=== PATIENT | female | born 1995 | race Caucasian/White ===

== ENCOUNTER 2022-07-15 06:57 | Outpatient (CLI) | payer OTHER ==
[2022-07-15] MEDS ORDERED: GADOBUTROL 7.5 MMOL/7.5 ML VIAL ONE (07:04)
[2022-07-15] MEDS ORDERED: GADOBUTROL 7.5 MMOL/7.5 ML VIAL IVP ONE (08:30)
--- NOTE | 2022-07-15 09:35 | MRI Report ---
PROCEDURE: PELVIS W/WO INDICATIONS: DYSMENORRHEA CONTRAST: GADAVIST 5.7 ML TECHNIQUE: Coronal ultra fast SE, sagittal breath-hold T2 FSE; axial T1 FSE with and without fat saturation thro ugh the pelvis. Optional long- and short-axis uterine nonbreath-hold T2 FSE through the uterus. Sag ittal or axial dynamic ultra fast GE during administration of contrast. Post-contrast axial or coron al ultra fast GE / 2-D spoiled GE with fat saturation from the iliac crests to the symphysis. Option al diffusion weighted imaging and ADC may be performed. COMPARISON: None. FINDINGS: Image quality: Excellent. Uterus: Uterus is normal in size. Endometrium is normal in thickness. Junctional zone is normal in thickness at 12 mm or less. Uterus is neutral with anteflexion. Adnexa: Both ovaries are normal in size, without suspicious cystic or solid lesions. Urinary system: Bladder wall is normal in thickness. Distal ureters are non distended. Urethra myrna ears normal in morphology. Nodes and vessels: No pelvic or inguinal adenopathy by size criteria. Iliac vessels are normal in s ize. Dilated left adnexal vessels. Bowel and peritoneum: No pathologic free pelvic fluid. Inferior colon and small bowel loops are nor mal in caliber. Soft tissues: No inguinal hernias. No findings of pelvic floor incompetence in the absence of provo cation. Bones: Marrow demonstrates normal overall signal. IMPRESSION: No acute abnormality to explain the patient's dysmenorrhea. Dilated left adnexal vessels, which can be seen in the clinical setting of pelvic congestion syndrome . Reviewed by: Wilbert Retana on 07/15/2022 9:34 AM PDT Approved by: Wilbert Retana on 07/15/2022 9:34 AM PDT Station ID: [id number]
== END 2022-07-15 06:58 | disposition home or self-care (01) ==
LOC: DI 06:57
PROVIDERS: ATTEND Student in an Organized Health Care Education/Training Program
DX: N94.6 Dysmenorrhea, unspecified (principal); N94.89 Other specified conditions associated with female genital organs and menstrual cycle
CPT/HCPCS: 72197; A9585

== ENCOUNTER 2023-12-27 08:00 | Outpatient (CLI) | payer OTHER | END 2023-12-27 23:59 | disposition home or self-care (01) | LOC: LAB.N 08:00 | PROVIDERS: ATTEND Physician Assistant Medical | DX: N39.0 Urinary tract infection, site not specified (principal) | CPT/HCPCS: 87077; 87086 ==

== ENCOUNTER 2024-01-06 11:34 | Emergency (ER) | payer OTHER ==
--- NOTE | 2024-01-06 11:48 | ED Physician Documentation ---
History of Present Illness - Stated complaint Stated Complaint: BLEEDING, 7 WKS PREG - History obtained from History obtained from: Patient - Additonal information Additional information: 28-year-old at 7 weeks presents with vaginal bleeding starting yesterday. It was as heavy as a period but now is tapered off. It is not associated with any significant pain or cramping. She has a history of pelvic congestion syndrome. PD PAST MEDICAL HISTORY - Allergies Allergies/Adverse Reactions: Allergies Allergy/AdvReac Type Severity Reaction Status Date / Time cefico Allergy Unknown Uncoded 01/06/24 11:47 PD ED PE NORMAL - Vitals Vital signs reviewed: Yes - General General: Alert and oriented X 3, No acute distress - Abdomen Abdomen: Normal bowel sounds, Soft, Non tender, Other (I am unable to visualize a uterus with bedside ultrasound. Bladder is empty.) - Neuro Neuro: Alert and oriented X 3 Results - Vitals Vitals: Vital Signs - 24 hr 01/06/24 11:47 Temperature 36.6 C Heart Rate 97 Respiratory 17 Rate Blood Pressure 128/94 H O2 Saturation 99 Oxygen O2 Source Room air - Labs Labs: Laboratory Tests 01/06/24 01/06/24 01/06/24 11:55 11:55 11:55 WBC 11.4 H RBC 4.70 Hgb 14.6 Hct 44.8 MCV 95.3 MCH 31.1 H MCHC 32.6 RDW 12.0 Plt Count 254 MPV 10.3 Neut # (Auto) 9.4 H Lymph # (Auto) 1.4 L [place] # (Auto) 0.4 Eos # (Auto) 0.0 Baso # (Auto) 0.1 Absolute Nucleated RBC 0.00 Nucleated RBC % 0.0 Sodium 136 Potassium 3.7 Chloride 104 Carbon Dioxide 25 Anion Gap 7.0 BUN 8 Creatinine 0.7 Estimated GFR (MDRD) 101 Glucose 141 H Calcium 9.4 Total Bilirubin 0.3 AST 16 ALT 12 Alkaline Phosphatase 70 Total Protein 6.8 Albumin 4.5 Globulin 2.3 Albumin/Globulin Ratio 2.0 Beta HCG, Quant 80681.1 Blood Type A POSITIVE - Rads (name of study) ob sono Relevant Findings:: Prelim report reviewed PD Medical Decision Making - ED course ED course: 28-year-old woman presents with bleeding in early now resolved. Her beta-hCG is well above the diagnostic cutoff and per the RDMS she has a gestational sac in her uterus with no free fluid. She would benefit from a repeat beta-hCG in 48 hours and I discussed this with our on-call OB Dr. Barber who will help with the arrangements. Departure - Departure Disposition: Home, Self Care Clinical Impression: Threatened in early Condition: Stable Record reviewed to determine appropriate education?: Yes Instructions: ED Miscarriage Poss Follow-Up: [facility] [Provider Group] Comments: You are seen today for vaginal bleeding in early . We do see something reassuring in the uterus but fairly early to give you any details on it. It would be helpful for you prognostically to have a repeat beta-hCG in 2 days, the current level was 33,595. I have reached out to our on-call HOME DECORATOR physician who will put in the order. You should call the women's clinic Monday morning to detail arrangements and because of that I am giving you a work note for Monday so you can take the day off to do the testing. Return for new or worsening symptoms. Forms: Activity restrictions
[2024-01-06 12:01] LABS: BASOPHILS # (AUTO) 0.1 10^3/uL (0.0-0.1); BASOPHILS % (AUTO) 0.5 %; EOSINOPHILS % (AUTO) 0.3 %; HCT - HEMATOCRIT 44.8 % (37.0-47.0); HGB - HEMOGLOBIN 14.6 g/dL (12.0-16.0); LYMPHOCYTES # (AUTO) 1.4 10^3/uL (1.5-3.5); LYMPHOCYTES % (AUTO) 12.6 %; MEAN CORPUSCULAR HEMOGLOBIN 31.1 pg (27.0-31.0); MEAN CORPUSCULAR HGB CONC 32.6 g/dL (32.0-36.0); MEAN CORPUSCULAR VOLUME 95.3 fL (81.0-99.0); MEAN PLATELET VOLUME 10.3 fL (7.9-10.8); MONOCYTES # (AUTO) 0.4 10^3/uL (0.0-1.0); MONOCYTES % (AUTO) 3.6 %; NEUTROPHILS # (AUTO) 9.4 10^3/uL (1.5-6.6); NEUTROPHILS % (AUTO) 82.5 %; PLT - PLATELET COUNT 254 10^3/uL (130-450); WHITE BLOOD COUNT 11.4 x10^3/uL (4.8-10.8)
[2024-01-06 12:02] VITALS: BP 128/94; O2SAT 99
[2024-01-06 12:28] LABS: ALBUMIN 4.5 g/dL (3.2-5.5); BILIRUBIN,TOTAL 0.3 mg/dL (0.2-1.0); CALCIUM 9.4 mg/dL (8.5-10.3); CREATININE 0.7 mg/dL (0.6-1.3); POTASSIUM 3.7 mmol/L (3.5-4.5); TOTAL PROTEIN 6.8 g/dL (6.4-8.9)
--- NOTE | 2024-01-06 13:12 | Ultrasound Report ---
PROCEDURE: OB 1st Trimester w/TV INDICATIONS: vb 7w OUTSIDE/PRIOR DATING DATA: Last menstrual period (LMP): 11/23/2023. LMP-based estimated date of delivery (FRANCINE): Not provided. First dating scan (date and location): Today. Estimated date of delivery (FRANCINE) from first dating scan: Not calculated. TECHNIQUE: Real-time scanning was performed of the fetus and maternal pelvic organs, with image documentation. Endovaginal scanning was also performed to better visualize the fetus and maternal ovaries. COMPARISON: None. FINDINGS: Intrauterine gestational sac present. Embryo: Yolk sac is present. No components identified. Heart rate: Not detected Mean gestational sac diameter measures 1.38 cm consistent with 6 weeks 2 days. Other: Perigestational hematoma measuring 1.7 cm. Measurement variability in dating: +/- 4 weeks by LMP, +/- 7 days by mean sac diameter (use before 6 weeks gestation if crown-rump length not able to be measured), +/- 5 days by crown-rump length (6-12 weeks gestation). Maternal organs: Ovaries appear within normal limits. IMPRESSION: Intrauterine of unknown viability. Subchorionic hematoma measuring 1.7 cm. Reviewed by: Kofi Shaffer MD on 01/06/2024 12:11 PM CLARISA Approved by: Kofi Shaffer MD on 01/06/2024 12:11 PM CLARISA Station ID: [id number]
== END 2024-01-06 13:17 | disposition home or self-care (01) ==
LOC: ED 11:34
DX: O20.0 Threatened abortion (principal); Z3A.01 Less than 8 weeks gestation of pregnancy
CPT/HCPCS: 36415; 80053; 84702; 85025; 86900; 86901; 99284

== ENCOUNTER 2024-01-08 08:49 | Outpatient (CLI) | payer OTHER | END 2024-01-08 08:50 | disposition home or self-care (01) | LOC: LAB.N 08:49 | PROVIDERS: ATTEND Obstetrics & Gynecology | DX: Z32.01 Encounter for pregnancy test, result positive (principal) | CPT/HCPCS: 36415; 84702 ==

== ENCOUNTER 2024-08-29 07:37 | Inpatient (IN) ==
[2024-08-29] MEDS ORDERED: NIFEdipine 10 MG CAPSULE PO PRN (07:51)
[2024-08-29] MEDS ORDERED: miSOPROStoL 200 MCG TABLET BC PRN (07:51)
[2024-08-29] MEDS ORDERED: OXYTOCIN 10 UNIT/ML VIAL IM PRN (07:51)
[2024-08-29] MEDS ORDERED: fentaNYL 100 MCG/2 ML VIAL IVP PRN (07:51)
[2024-08-29] MEDS ORDERED: SODIUM CHLORIDE FLUSH 0.9% 10 ML SYRINGE IVP PRN ×2 (07:51→22:40)
[2024-08-29] MEDS ORDERED: CALCIUM CARBONATE CHEW 500 MG TABLET PO PRN (07:51)
[2024-08-29] MEDS ORDERED: TERBUTALINE 1 MG/ML VIAL SUBQ PRN (07:51)
[2024-08-29] MEDS ORDERED: LABETALOL 20 MG/4 ML SYRINGE IVP PRN ×3 (07:51)
[2024-08-29] MEDS ORDERED: ONDANSETRON ODT 4 MG TABLET PO PRN (07:51)
[2024-08-29] MEDS ORDERED: hydrALAZINE INJ 20 MG/ML VIAL IVP PRN (07:51)
[2024-08-29] MEDS ORDERED: lidocaine 1% 20 ML MDV ID PRN (07:51)
[2024-08-29 09:09] LABS: BASOPHILS # (AUTO) 0.1 10^3/uL (0.0-0.1); BASOPHILS % (AUTO) 0.4 %; EOSINOPHILS # (AUTO) 0.1 10^3/uL (0.0-0.7); EOSINOPHILS % (AUTO) 0.6 %; HCT - HEMATOCRIT 38.2 % (37.0-47.0); HGB - HEMOGLOBIN 13.2 g/dL (12.0-16.0); LYMPHOCYTES # (AUTO) 1.8 10^3/uL (1.5-3.5); LYMPHOCYTES % (AUTO) 15.5 %; MEAN CORPUSCULAR HEMOGLOBIN 30.8 pg (27.0-31.0); MEAN CORPUSCULAR HGB CONC 34.6 g/dL (32.0-36.0); MEAN PLATELET VOLUME 12.3 fL (7.9-10.8); MONOCYTES # (AUTO) 0.6 10^3/uL (0.0-1.0); MONOCYTES % (AUTO) 4.7 %; NEUTROPHILS # (AUTO) 9.3 10^3/uL (1.5-6.6); PLT - PLATELET COUNT 237 10^3/uL (130-450); RED BLOOD COUNT 4.29 10^6/uL (4.20-5.40); RED CELL DISTRIBUTION WIDTH 14.5 % (12.0-15.0); WHITE BLOOD COUNT 11.9 x10^3/uL (4.8-10.8)
[2024-08-29 09:18] LABS: ALBUMIN 3.4 g/dL (3.2-5.5); ALBUMIN/GLOBULIN RATIO 1.1 (1.0-2.2); BILIRUBIN,TOTAL 0.3 mg/dL (0.2-1.0); CALCIUM 9.1 mg/dL (8.5-10.3); CREATININE 0.7 mg/dL (0.6-1.3); POTASSIUM 3.8 mmol/L (3.5-4.5); TOTAL PROTEIN 6.5 g/dL (6.4-8.9)
[2024-08-29] MEDS: miSOPROStoL 100 MCG TABLET VG SCH ×2 (09:23→13:23)
[2024-08-29 09:47] LABS: CREATININE,URINE 67.6 mg/dL; PROTEIN/CREATININE RATIO,URINE 0.1 (<=0.2)
--- NOTE | 2024-08-29 11:53 | HISTORY & PHYSICAL EXAMINATION ---
Admit History Visit Reason Visit Reason: Other (labor induction, gestational hypertension, 40 w 0d) : 1 Care: positive [facility] Risk/History: positive None Complications This : positive Gestational diabetes (diet controlled) and induced HTN Smoking Status: Never smoker Other Maternal History Other Maternal History: here for labor induction at 40 weeks. no headache, n/v. no contractions. good movement. aspirin (Adult Aspirin Regimen) 81 mg PO QDAY blood sugar diagnostic 4 times per day via meter as directed blood sugar diagnostic (FreeStyle Lite Strips) 4 times daily via meter blood-glucose meter 4 times per day as directed blood-glucose meter (FreeStyle Lite Meter kit) Use meter 4 times daily as directed cholecalciferol (vitamin D3) 125 mcg PO QDAY lancets 4 times per day as directed PNV no.715-[id number]-[id number] acid 28 mg iron- 800 mcg ( Vitamin) tabs PO Expected Delivery Route/Plan Anticipate Specific Issues/Plans Accepts blood transfusion in event of medical emergency Medical Hx: no significant Surgical Hx: none Social Hx: [id number]. Partner [id number]. He has a 2 year old daughter from a previous relationship. No ETOH or IVDA. Never smoker. Reports she is safe in current relationship. LMP: 11/23/2023 FRANCINE by LMP: 08/29/2024 US: 02/16/2024 @ 11.5wks c/w 1st trimester ultrasound Final FRANCINE: 08/29/2024 PROBLEMS: Gestational diabetes: -Tracking and logging blood glucose did not need meds Pre- Weight: 135, 189 today = 54 pound weight gain BMI: 24.0 Blood type: A+ Antibody Screen: Negative CBC: PLT: 241 HCT38.9 HGB 13.1 RUB: Immune VZV: Immune HBsAg: Neg HepC: NR RPR: NR HIV: NR Flu: now out of season Covid: out of season PAP: 11/2019 normal per pt- Pap due PP GC/CT: 02/20/2024 Neg HSV: denies in self and partner Genetic testing: MaterniT- Neg AFP -neg FAS: Placenta: posterior w/o previa Cord: 3VC PANCHO: 15.8cm wnl EFW: 455.8g 81.3%ile 50gm OGCT: 203 *3HR GTT: F90 1hr:184 2hr 214 3hr 97 TDAP: 06/18/2024 Breast Pump: HAS CBC: PLT 291 HCT 37.9 HGB 12.6 RPR: NR GBS: 08/01/2024- positive HPI Diagnosis/Indication for NST: Gestational Hypertension NST Procedure NST Procedure: Reactive for of 32 weeks gestation or more. NST tracing contains at least two heart rate accelerations that are at least 15 beats per minute above the baseline rate and lasting at least 15 seconds from onset to return to baseline within a twenty minute period. Results and Plan Findings/Impression: reactive NST Plan: Proceed with labor induction Meds/Allgy Home Medications Ambulatory Orders Medication Instructions Recorded Confirmed vitamins no.159-iron tab PO 02/16/24 08/26/24 fumarate 28 mg-folic acid 800 mcg tablet ( Vitamin) cholecalciferol (vitamin D3) 125 125 mcg PO QDAY 03/2208/26/24 mcg (5,000 unit) capsule blood sugar diagnostic #200 ea 06/11/24 08/26/24 blood-glucose meter #1 ea 06/11/24 08/26/24 lancets #200 ea 06/11/24 08/26/24 blood-glucose meter (FreeStyle #1 ea 06/12/24 08/26/24 Lite Meter kit) aspirin 81 mg tablet,delayed 81 mg PO QDAY 07/18/24 release (Adult Aspirin Regimen) blood sugar diagnostic (FreeStyle #100 ea 08/01/2404/10 Lite Strips) Allergies Allergies Allergy/AdvReac Type Severity Reaction Status Date / Time cefico Allergy Unknown Uncoded 08/23/24 15:10 PFSH Active Problems All Active Problems (Updated 08/29/24 @ 12:02 by Irene Griffin MD) GBS (group B Streptococcus carrier), +RV culture, currently (Acute) Encounter for planned induction of labor (Acute) Gestational hypertension (Acute) Gestational diabetes mellitus (GDM) affecting (Acute) Diastasis recti (Acute) Normal first in second trimester (Acute) Medical History Medical History (Updated 08/29/24 @ 12:02 by Irene Griffin MD) Pelvic pain in female 2021 Contusion of scalp, initial encounter (02/03/22) Altered mental status (02/03/22) Social History Social History Smoking Status: Never smoker Do you dip or chew tobacco?: No Patient requests smoking cessation consult: No Initiate information on smoking cessation: No Do you feel safe in your home environment?: Yes Suffered physical, verbal, emotional, or financial abuse?: No History of Abuse: No POLST Patient has POLST: No Physical Abdominal Exam Contraction Frequency (min/apart): none Uterine Resting Tone: positive Soft Monitoring Heart Rate Baseline: 140 Strip Review: positive Category I Presentation Presentation: positive Vertex (confirmed by US this am.) Vaginal Exam Membranes: positive Membranes intact Dilation (in cm): 1 Effacement (%): 70 Station: positive -3 Cervical Position: positive Posterior Speculum Exam Speculum Exam Performed: positive No Plan for Labor Plan For Labor I expect patient to be DC'd or transferred within 96 hours.: Yes Plan for Labor: induction. plan for vag del. Conclusion/Plan Problem List (1) Encounter for planned induction of labor: Plan: no contractions, low white scrore. start with misoprostol (2) Gestational hypertension: Plan: no sx of preE. labs normal. urine protein MTP 0.1. will just watch. Qualifiers: Trimester: third trimester Qualified Code(s): O13.3 - Gestational [-induced] hypertension without significant proteinuria, third trimester (3) Gestational diabetes mellitus (GDM) affecting : Plan: sugars have been pretty good with diet. will check some in labor (4) GBS (group B Streptococcus carrier), +RV culture, currently : Plan: will start Ampicillin when she starts getting uncomfortable. Lab Results Lab results reviewed: Yes 08/29/24 08:12 08/29/24 08:12
[2024-08-29] MEDS ORDERED: AMPICILLIN 1 GM in SODIUM CHLORIDE 0.9% MINIBAG 100 ML IV SCH (12:00)
--- NOTE | 2024-08-29 14:21 | PHARMACY PROGRESS NOTE ---
Best Possible Medication History Admit Date and Time: 08/29/24 [id number] Home Medications Medication Instructions Recorded Confirmed Type vitamins no.159-iron 1 tab PO DAILY 02/16/24 08/29/24 History fumarate 28 mg-folic acid 800 mcg tablet ( Vitamin) cholecalciferol (vitamin D3) 125 125 mcg PO DAILY 10/0808/29/24 History mcg (5,000 unit) capsule blood sugar diagnostic #200 ea 06/11/24 08/26/24 Rx blood-glucose meter #1 ea 06/11/24 08/26/24 Rx lancets #200 ea 06/11/24 08/26/24 Rx blood-glucose meter (FreeStyle #1 ea 06/12/24 08/26/24 Rx Lite Meter kit) aspirin 81 mg tablet,delayed 81 mg PO DAILY 07/18/24 0 08/29/24 History release (Adult Aspirin Regimen) blood sugar diagnostic (FreeStyle #100 ea 08/01/2404/10 Rx Lite Strips) Processed by: Pharmacy Medications reviewed in ED?: No Medication History completed: Yes Patient Interview: Completed Secondary Source(s): Insurance records [facility] [place] Statement: As the person ultimately responsible for medication therapy, providers are able to order a medication from an existing home medication list in [facility] via the "Reconcile Routine" prior to Confirmation of that medication by telecommunications support. Such practice is discouraged except when the physician, in their clinical judgment, deems that a medical need exists for a medication without regard to previous use.
[2024-08-29] MEDS: AMPICILLIN 2 GM in SODIUM CHLORIDE 0.9% MINIBAG 100 ML IV ONE (17:51)
[2024-08-29] MEDS: LACTATED RINGERS 1,000 ML IV PRN (17:52)
[2024-08-29] MEDS ORDERED: AMPICILLIN 2 GM in SODIUM CHLORIDE 0.9% MINIBAG 100 ML IV SCH (18:00)
[2024-08-29] MEDS: SODIUM CHLORIDE FLUSH 0.9% 10 ML SYRINGE IVP SCH (18:07)
--- NOTE | 2024-08-29 20:48 | PROVIDER PROGRESS NOTE ---
Progress Note Progress Note Progress Note: saw patient at 5 pm. baby cat 1 always. received 50 mcg of miso and 1. barely getting more uncomfortable but contractions every 2 min on monitor. cervix 2.5/70/-2 and very soft. did not feel like a catheter would stay in. Plan: start ampicillin and reassess for AROM at 10. Talk to RN at 1930 when next dose of miso might be due and see how much she is contraction. AT 194 talked to RN and getting a bit more uncomfortable. will reassess at 10.
[2024-08-29] MEDS: AMPICILLIN 1 GM in SODIUM CHLORIDE 0.9% MINIBAG 100 ML IV SCH (22:09)
--- NOTE | 2024-08-29 22:36 | PROVIDER PROGRESS NOTE ---
Progress Note Progress Note Progress Note: came in to evaluate patient. contractions a bit stronger then last check, but not much. hard to bean picker machine operator. did not do more miso as seemed to be marito too much. Ampicillin #2 hanging. baby consistently category 1. bps stable at about 140/85 no headache no leaking fluid. cervix: 3/70/-2. agrees to AROM after discussing. done and clear fluid. plan: if no significant increase in contractions in about 1 hr, start pitocin per protocol.
[2024-08-30] MEDS ORDERED: LIDOCAINE 2%-EPI 1:100000 20 ML MDV ONE (00:14)
[2024-08-30] MEDS ORDERED: ROPIVACAINE 0.2% 200 MG/100 ML BAG EP ONE (00:15)
[2024-08-30] MEDS ORDERED: ROPIVACAINE 0.2% 200 MG/100 ML BAG EP PRN (00:58)
[2024-08-30] MEDS ORDERED: NALOXONE 0.4 MG/ML VIAL IVP PRN ×2 (00:58→07:07)
[2024-08-30] MEDS ORDERED: ePHEDrine 50 MG/ML VIAL IVP PRN (00:58)
--- NOTE | 2024-08-30 00:58 | ANESTHESIA PROCEDURE NOTE ---
Pre-Anesthesia VS, & Labs Diagnosis Surgical Diagnosis:: Active labor Procedure Procedure: Vaginal delivery NPO NPO: Other (Clear liquids) Is Patient ?: Yes Lab Results Current Lab Results: Laboratory Tests 08/29/24 13:29: POC Whole Bld Glucose 106 08/29/24 08:12: WBC 11.9 H, RBC 4.29, Hgb 13.2, Hct 38.2, MCV 89.0, MCH 30.8, MCHC 34.6, RDW 14.5, Plt Count 237, MPV 12.3 H, Neut # (Auto) 9.3 H, Lymph # (Auto) 1.8, [place] # (Auto) 0.6, Eos # (Auto) 0.1, Baso # (Auto) 0.1, Absolute Nucleated RBC 0.00, Nucleated RBC % 0.0, Sodium 136, Potassium 3.8, Chloride 107, Carbon Dioxide 20 L, Anion Gap 9.0, BUN 12, Creatinine 0.7, Estimated GFR (MDRD) 101, Glucose 116 H, Calcium 9.1, Total Bilirubin 0.3, AST 20, ALT 12, A lkaline Phosphatase 249 H, Total Protein 6.5, Albumin 3.4, Globulin 3.1, Albumin/Globulin Ratio 1.1, Blood Type A POSITIVE, Antibody Screen NEGATIVE Lab results reviewed: Yes 08/29/24 08:12 08/29/24 08:12 Meds/Allgy Home Medications Ambulatory Orders Medication Instructions Recorded Confirmed vitamins no.159-iron 1 tab PO DAILY 02/16/24 08/29/24 fumarate 28 mg-folic acid 800 mcg tablet ( Vitamin) cholecalciferol (vitamin D3) 125 125 mcg PO DAILY 10/0808/29/24 mcg (5,000 unit) capsule blood sugar diagnostic #200 ea 06/11/24 08/26/24 blood-glucose meter #1 ea 06/11/24 08/26/24 lancets #200 ea 06/11/24 08/26/24 blood-glucose meter (FreeStyle #1 ea 06/12/24 08/26/24 Lite Meter kit) aspirin 81 mg tablet,delayed 81 mg PO DAILY 07/18/24 0 08/29/24 release (Adult Aspirin Regimen) blood sugar diagnostic (FreeStyle #100 ea 08/01/2404/10 Lite Strips) Allergies Allergies Allergy/AdvReac Type Severity Reaction Status Date / Time cefprozil (From Cefzil) Allergy Mild Rash Verified 08/29/24 14:20 PFSH Active Problems All Active Problems (Updated 08/29/24 @ 12:02 by Irene Griffin MD) GBS (group B Streptococcus carrier), +RV culture, currently (Acute) Encounter for planned induction of labor (Acute) Gestational hypertension (Acute) Gestational diabetes mellitus (GDM) affecting (Acute) Diastasis recti (Acute) Normal first in second trimester (Acute) Medical History Medical History (Updated 08/29/24 @ 12:02 by Irene Griffin MD) Pelvic pain in female 2021 Contusion of scalp, initial encounter (02/03/22) Altered mental status (02/03/22) Social History Social History Smoking Status: Never smoker Do you dip or chew tobacco?: No Patient requests smoking cessation consult: No Initiate information on smoking cessation: No Do you feel safe in your home environment?: Yes Suffered physical, verbal, emotional, or financial abuse?: No History of Abuse: No POLST Patient has POLST: No Anesthesia Exam (Expanded) Exam General: Alert, Oriented x3 and Cooperative Dental: WNL Mouth Openin Fingerbreadth Neck Mobility: Normal Mallampati classification: II Thyromental Distance: 4-6 cm Plan Plan Anesthesia Type: Epidural Consent for Procedure(s) Verified and Reviewed: Yes Code Status: Attempt Resuscitation ASA Classification ASA classification: 2-Mild systemic disease Is this case an emergency?: No
[2024-08-30] MEDS ORDERED: SODIUM CHLORIDE FLUSH 0.9% 10 ML SYRINGE IVP SCH (01:00)
[2024-08-30] MEDS: OXYTOCIN/SODIUM CHLORIDE 500 ML IV SCH (02:09)
[2024-08-30] MEDS: METHYLERGONOVINE 0.2 MG/ML VIAL IM PRN (06:01)
[2024-08-30] MEDS: miSOPROStoL 200 MCG TABLET PR PRN (06:02)
[2024-08-30] MEDS: TRANEXAMIC ACID IN NACL 1,000 MG/100 ML BAG IV PRN (06:04)
[2024-08-30] MEDS ORDERED: CARBOPROST TROMETHAMINE 250 MCG/ML VIAL IM ONE ×2 (06:07→11:38)
[2024-08-30] MEDS: OXYTOCIN/SODIUM CHLORIDE 500 ML IV PRN (06:41)
[2024-08-30] MEDS: ONDANSETRON 4 MG/2 ML VIAL IVP PRN (06:45)
[2024-08-30 06:53] LABS: BASOPHILS # (AUTO) 0.1 10^3/uL (0.0-0.1); BASOPHILS % (AUTO) 0.3 %; HCT - HEMATOCRIT 35.7 % (37.0-47.0); HGB - HEMOGLOBIN 11.5 g/dL (12.0-16.0); LYMPHOCYTES # (AUTO) 1.6 10^3/uL (1.5-3.5); LYMPHOCYTES % (AUTO) 7.8 %; MEAN CORPUSCULAR HEMOGLOBIN 29.6 pg (27.0-31.0); MEAN CORPUSCULAR HGB CONC 32.2 g/dL (32.0-36.0); MEAN CORPUSCULAR VOLUME 91.8 fL (81.0-99.0); MEAN PLATELET VOLUME 12.3 fL (7.9-10.8); MONOCYTES # (AUTO) 1.3 10^3/uL (0.0-1.0); MONOCYTES % (AUTO) 6.3 %; NEUTROPHILS # (AUTO) 17.3 10^3/uL (1.5-6.6); PLT - PLATELET COUNT 220 10^3/uL (130-450); RED BLOOD COUNT 3.89 10^6/uL (4.20-5.40); RED CELL DISTRIBUTION WIDTH 14.5 % (12.0-15.0); WHITE BLOOD COUNT 20.4 x10^3/uL (4.8-10.8)
[2024-08-30] MEDS ORDERED: hydrALAZINE INJ 20 MG/ML VIAL IVP PRN ×2 (07:07)
[2024-08-30] MEDS ORDERED: LABETALOL 20 MG/4 ML SYRINGE IVP PRN ×2 (07:07)
[2024-08-30] MEDS ORDERED: NIFEdipine 10 MG CAPSULE PO PRN (07:07)
[2024-08-30] MEDS ORDERED: SIMETHICONE CHEW 80 MG TABLET PO PRN (07:07)
[2024-08-30] MEDS ORDERED: LABETALOL 5 MG/1 ML 20 ML MDV IVP PRN (07:07)
[2024-08-30] MEDS ORDERED: ACETAMINOPHEN 500 MG TABLET PO PRN (07:07)
[2024-08-30] MEDS ORDERED: OXYTOCIN/SODIUM CHLORIDE 500 ML IV PRN (07:07)
[2024-08-30] MEDS: AMPICILLIN/SULBACTAM 3 GM in SODIUM CHLORIDE 0.9% MINIBAG 100 ML IV SCH (07:58)
[2024-08-30] MEDS ORDERED: SODIUM CHLORIDE 0.9% 50 ML IV ONE (10:28)
[2024-08-30] MEDS ORDERED: SODIUM CHLORIDE 0.9% 1,000 ML ONE ×2 (10:28→10:35)
[2024-08-30 12:15] LABS: BASOPHILS # (AUTO) 0.1 10^3/uL (0.0-0.1); BASOPHILS % (AUTO) 0.3 %; HCT - HEMATOCRIT 29.1 % (37.0-47.0); HGB - HEMOGLOBIN 9.8 g/dL (12.0-16.0); LYMPHOCYTES # (AUTO) 1.7 10^3/uL (1.5-3.5); LYMPHOCYTES % (AUTO) 7.7 %; MEAN CORPUSCULAR HEMOGLOBIN 30.2 pg (27.0-31.0); MEAN CORPUSCULAR HGB CONC 33.7 g/dL (32.0-36.0); MEAN CORPUSCULAR VOLUME 89.8 fL (81.0-99.0); MEAN PLATELET VOLUME 11.6 fL (7.9-10.8); MONOCYTES # (AUTO) 0.8 10^3/uL (0.0-1.0); MONOCYTES % (AUTO) 3.8 %; NEUTROPHILS # (AUTO) 19.3 10^3/uL (1.5-6.6); NEUTROPHILS % (AUTO) 87.7 %; PLT - PLATELET COUNT 182 10^3/uL (130-450); RED BLOOD COUNT 3.24 10^6/uL (4.20-5.40); RED CELL DISTRIBUTION WIDTH 14.5 % (12.0-15.0)
[2024-08-30 12:28] LABS: SLIDE REVIEW? Indicated
--- NOTE | 2024-08-30 12:37 | PROVIDER PROGRESS NOTE ---
Subjective Prog Note Date Prog Note Date: 08/30/24 Prog Note Time: 12:25 Subjective Pt reports feeling: Improved Subjective: Care assumed from Dr. Griffin at 0800. History and labor/delivery course reviewed. Patient is PPD #0 s/p earlier this morning. Delivery was complicated by severe uterine atony, requiring methergine, misoprostol, TXA, and then placement of Anaid device. Tone and bleeding improved at that point. EBL was 1600 ml. Patient had a mild headache this morning, which is now resolved with rest and small amt of food. She declined Tylenol or Motrin. She denies other sx of preE. She is feeling well but a little crampy. Postpartm Pitocin bag #2 nearly complete. There has been no perineal bleeding noted. Anaid suction tubing with some dark blook in the tube but none to the canister. The level of bleeding has been unchanged for past 2-3 hours. Current Medications Current Medications Current Medications: Current Medications Generic Name Dose Route Start Last Admin Trade Name Sahilq PRN Reason Stop Dose Admin Acetaminophen 1,000 mg 08/29/24 07:51 Acetaminophen 500 Mg Tablet PO Q8H PRN Mild Pain or Fever>38C(100.4F) Calcium Carbonate/Glycine 1,000 mg 08/29/24 07:51 Calcium Carbonate Chew 500 Mg Tablet PO Q6HR PRN Heartburn Docusate Sodium 100 mg 08/30/24 09:00 Docusate Sodium 100 Mg Capsule PO BID ZOE Ephedrine Sulfate 5 mg 08/30/24 00:58 Ephedrine 50 Mg/Ml Vial IVP Q5M PRN For SBP<100;give until SBP>100 Fentanyl 50 mcg 08/29/24 07:51 Fentanyl 100 Mcg/2 Ml Vial IVP Q1H PRN Severe Pain (score 7-10) Hydralazine HCl 5 - 10 mg 08/29/24 07:51 Hydralazine Inj 20 Mg/Ml Vial IVP Q20M PRN SBP> or= 160 OR DBP> or= 110 Protocol Hydralazine HCl 10 mg 08/30/24 07:07 Hydralazine Inj 20 Mg/Ml Vial IVP .ONCE PRN SBP> or= 160 OR DBP> or= 110 Protocol Hydralazine HCl 5 - 10 mg 08/30/24 07:07 Hydralazine Inj 20 Mg/Ml Vial IVP Q20M PRN SBP >=160 and/or DBP >=110 Protocol Lactated Ringer's 500 mls @ 999 mls/hr 08/29/24 07:51 08/30/24 07:30 Lr IV 125 mls/hr PRN PRN Infusion Abdominal Pain Oxytocin/Sodium Chloride 500 mls @ 999 mls/hr 08/29/24 07:51 08/30/24 06:41 Pitocin/Sodium Chloride IV 999 milliunit/min PRN PRN 999 mls/hr POST- HEMORR PREVENTION Administration Protocol 999 MILLIUNIT/MIN Tranexamic Acid 1,000 mg in 100 mls @ 600 mls/hr 08/29/24 07:51 08/30/24 06:20 Tranexamic 1,000 Mg/100ml-Nacl IV Infused Q30M PRN Infusion EBL >1200mL and within 3hr Oxytocin/Sodium Chloride 500 mls @ 1 mls/hr 08/29/24 23:00 08/30/24 07:10 Pitocin/Sodium Chloride IV 100 milliunit/min TITR ZOE 100 mls/hr Administration Protocol 1 MILLIUNIT/MIN Ropivacaine 200 mg in 100 mls @ 0 mls/hr 08/30/24 00:58 Naropin 0.2% EP PRN PRN PAIN Protocol Per Protocol Oxytocin/Sodium Chloride 500 mls @ 999 mls/hr 08/30/24 07:07 Pitocin/Sodium Chloride IV PRN PRN POST- HEMORR PREVENTION Protocol 999 MILLIUNIT/MIN Ibuprofen 600 mg 08/30/24 07:07 Ibuprofen 600 Mg Tablet PO Q6HR PRN Moderate Pain (Level 4-6) Labetalol HCl 20 mg 08/29/24 07:51 Labetalol 20 Mg/4 Ml Syringe IVP .ONCE PRN SBP> or= 160 OR DBP> or= 110 Protocol Labetalol HCl 20 - 40 mg 08/29/24 07:51 Labetalol 20 Mg/4 Ml Syringe IVP Q10M PRN SBP> or= 160 OR DBP> or= 110 Protocol Labetalol HCl 20 - 80 mg 08/29/24 07:51 Labetalol 20 Mg/4 Ml Syringe IVP Q10M PRN SBP> or= 160 OR DBP> or= 110 Protocol Labetalol HCl 20 - 80 mg 08/30/24 07:07 Labetalol 5 Mg/1 Ml 20 Ml Mdv IVP Q10M PRN SBP> or= 160 OR DBP> or= 110 Protocol Labetalol HCl 20 - 40 mg 08/30/24 07:07 Labetalol 20 Mg/4 Ml Syringe IVP Q10M PRN SBP> or= 160 OR DBP> or= 110 Protocol Labetalol HCl 20 mg 08/30/24 07:07 Labetalol 20 Mg/4 Ml Syringe IVP .ONCE PRN SBP >=160 and/or DBP >=110 Protocol Lidocaine HCl 20 ml 08/29/24 07:51 Lidocaine 1% 20 Ml Mdv ID 09/01/24 07:51 .ONCE PRN PERINEAL REPAIR Misoprostol 600 mcg 08/29/24 07:51 Misoprostol 200 Mcg Tablet BC .ONCE PRN Hemorrhage Misoprostol 50 mcg 08/29/24 13:30 08/29/24 18:07 Misoprostol 100 Mcg Tablet VG Not Given Q4H [facility] Naloxone HCl 0.1 mg 08/30/24 00:58 Naloxone 0.4 Mg/Ml Vial IVP Q2M PRN RR<8 Naloxone HCl 0.4 mg 08/30/24 07:07 Naloxone 0.4 Mg/Ml Vial IVP .ONCE PRN Opioid Overdose Nifedipine 10 - 20 mg 08/29/24 07:51 Nifedipine 10 Mg Capsule PO Q20M PRN SBP> or= 160 OR DBP> or= 110 Protocol Nifedipine 10 - 20 mg 08/30/24 07:07 Nifedipine 10 Mg Capsule PO Q20M PRN SBP >=160 and/or DBP >=110 Protocol Ondansetron HCl 4 mg 08/29/24 07:51 Ondansetron Odt 4 Mg Tablet PO Q4HR PRN Nausea / Vomiting Ondansetron HCl 4 mg 08/30/24 00:58 08/30/24 06:45 Ondansetron 4 Mg/2 Ml Vial IVP 4 mg Q6HR PRN Administration Nausea / Vomiting Oxytocin 10 unit 08/29/24 07:51 Oxytocin 10 Unit/Ml Vial IM .ONCE PRN Step One if no IV access. Simethicone 80 mg 08/30/24 07:07 Simethicone Chew 80 Mg Tablet PO TID PRN Gas Sodium Chloride 10 ml 08/29/24 07:51 Sodium Chloride Flush 0.9% 10 Ml Syringe IVP PRN PRN NEEDED PER PROVIDER ORDERS Sodium Chloride 10 ml 08/29/24 08:00 08/29/24 18:08 Sodium Chloride Flush 0.9% 10 Ml Syringe IVP Not Given Q8H ZOE Sodium Chloride 10 ml 08/29/24 22:40 Sodium Chloride Flush 0.9% 10 Ml Syringe IVP PRN PRN NEEDED PER PROVIDER ORDERS Sodium Chloride 10 ml 08/30/24 01:00 Sodium Chloride Flush 0.9% 10 Ml Syringe IVP 0100,0900,1700 ZOE Terbutaline Sulfate 0.25 mg 08/29/24 07:51 Terbutaline 1 Mg/Ml Vial SUBQ .ONCE PRN Tachystole Objective Vital Signs/Intake & Output Reviewed Vital Signs: Yes Vital Signs: Vital Signs x48h Temp Pulse Resp BP Pulse Ox 08/30/24 10:18 37.0 C 98 15 123/68 08/30/24 09:00 36.8 C 91 17 145/86 H 08/30/24 08:45 37.1 C 81 15 139/92 H 08/30/24 08:30 87 110/67 08/30/24 08:15 97 144/90 H 08/30/24 08:00 36.7 C 99 17 146/80 H 08/30/24 07:45 96 17 132/82 H 97 08/30/24 07:30 36.9 C 97 15 142/90 H 97 08/30/24 07:15 37.1 C 94 17 142/91 H 98 08/30/24 07:00 88 139/88 H 97 Intake & Output: Intake & Output 08/27/24 08/28/24 08/29/24 08/30/24 23:59 23:59 23:59 23:59 Intake Total 600 / 600 1533 / 1533 Output Total 1000 / 1000 Balance 600 / 600 533 / 533 Weight (kg) 85.729 kg Objective General Appearance: positive No acute distress and Alert Respiratory: positive No respiratory distress Cardiovascular: positive Regular rate & rhythm Abdomen: positive Non-tender and Other (Uterine fundus firm and minimally tender at U-1; perineum with mild bilateral labial swelling and no color changes; Anaid tube and urinary catheter visible) Skin: positive Color nml Extremities: positive Non-tender and Nml appearance Neurologic/Psychiatric: positive Oriented x3, Motor nml, Sensation nml and Mood/affect nml Lab Results 08/30/24 06:47 08/29/24 08:12 Other Labs: Lab Results x24hrs 08/30/24 08/29/24 Range/Units 06:47 13:29 WBC 20.4 H (4.8-10.8) x10^3/uL RBC 3.89 L (4.20-5.40) 10^6/uL Hgb 11.5 L (12.0-16.0) g/dL Hct 35.7 L (37.0-47.0) % MCV 91.8 (81.0-99.0) fL MCH 29.6 (27.0-31.0) pg MCHC 32.2 (32.0-36.0) g/dL RDW 14.5 (12.0-15.0) % Plt Count 220 (130-450) 10^3/uL MPV 12.3 H (7.9-10.8) fL Neut # (Auto) 17.3 H (1.5-6.6) 10^3/uL Lymph # (Auto) 1.6 (1.5-3.5) 10^3/uL [place] # (Auto) 1.3 H (0.0-1.0) 10^3/uL Eos # (Auto) 0.0 (0.0-0.7) 10^3/uL Baso # (Auto) 0.1 (0.0-0.1) 10^3/uL Absolute Nucleated RBC 0.00 x10^3/uL Nucleated RBC % 0.0 /100WBC POC Whole Bld Glucose 106 (70-100) mg/dL ABX Reporting Has patient been on IV antibiotics over the past 48 hours?: Yes Assessment/Plan Problem List (1) hemorrhage, delivered, current hospitalization: Impression: PPD #0 s/p complicated by PPH/uterine atony. - Anaid device depressurized and balloon deflated at 1143. Monitored uterine fundus and bleeding immediately after removal, and uterine remained firm at U-1. One small gush of dark blood obtained with second massage. After 30 min, the device was removed from the vagina. Pt tolerated well. Uterus remained firm with no bleeding noted during massage. Blood loss with Anaid removal totaled 16 ml. - Repeat CBC just obtained and still pending. Will f/u result and consider iron or blood therapy as needed. - If tone/bleeding remain stable, discontinue Landeros catheter in approx 3-4 hrs. - OK to slowly increase activity as tolerated in approx 30 min. (2) Gestational hypertension: Impression: Hx gestational HTN with mild-range BP's. Pressures have been 120-140s/70-90's. No si/sx of severe features. - Repeat CBC and CMP tomorrow morning. - Consider start of antihypertensive if consistently 130-140/80-90s or more. Qualifiers: Trimester: third trimester Qualified Code(s): O13.3 - Gestational [-induced] hypertension without significant proteinuria, third trimester (3) care following vaginal delivery: Impression: - Cont routine care and support otherwise.
[2024-08-30 12:48] LABS: PLATELET ESTIMATE, MANUAL NORMAL (130-450,000) (NORMAL); PLATELET MORPHOLOGY NORMAL APPEARANCE (NORMAL); RBC MORPHOLOGY (MULTIPLE) NORMAL APPEARANCE (NORMAL)
--- NOTE | 2024-08-30 17:54 | DELIVERY NOTE ---
Delivery Note Labor Labor: positive Induced by ARM Infant Delivery Method Delivery Method: positive Spontaneous vaginal delivery Cervical Ripening Method Cervical Ripening Method: positive Misoprostil Presentation Presentation: positive Vertex Nuchal Cord Nuchal Cord: positive Present and Reduced Amniotic Fluid Description Amniotic Fluid Description: positive Clear Episiotomy Type Episiotomy Type: positive None Laceration Laceration: positive Vaginal (bilateral at opening. very small. repaired with 3-0 Vicryl Rapide) Suture Suture Type: positive Vicryl Suture Size: positive 3-0 Delivery Outcome Delivery Date: 08/30/24 Delivery Time: 05:47 Delivery Outcome: positive Livebirth : positive Placed in direct skin contact with mother, Suctioned, Bulb syringe and Stimulated sex: positive Male (Named Aquilino) Cord Cord: positive 3 vessels Placenta Placenta: positive Spontaneous Estimated Blood Loss Estimated Blood Loss (in cc): 1,589 Post Delivery Events Post Delivery Events: positive Other (severe uterine atony) Delivery Comments (Free Text/Narrative) Delivery Comments (Free Text/Narrative): Patient presents for labor induction on her due date. gestational hypertension but no preeclampsia. gestational diabetes, diet controlled. Misoprostol vaginally 25 mcg at 9 am then 50 mcg about 1300. With this she was marito quite frequently. Ampicillin was started and I came in at 2200 for AROM. clear fluid. 3 cm. At 2 am still 3 cm but very comfortable with epidural. Pitocin started earlier. progressed to complete at 0345. I came in as she had some very deep variables. Pitocin was at 2 mu and was turned off. She started pushing and brought the baby from about +1 station to the perineum in about 20 min. Then for the next 90 min or so she barely had any contractions. Baby did not move any further down at all, even with some hefty vomiting. Pitocin was titrated back up to 4 mu. Her RN Jenny went to out for a short break and all of a sudden she had a good contraction and delivered her baby with a few pushes. Long head come out. cord around neck once easily reduced. shoulders delivered. Baby placed on mom's belly. dried and stimulated. took about a minute to cry. They wanted delayed cord clamping so this was done after about 5 minutes. During this time, I placed a few stitches in the small lacerations just inside the vaginal opening. Too cut the cord. Placenta delivered right after that. Oxytocin was infused in the IV. The uterus was completely boggy. NO tone at all. vigorous massage was done. Methergine was given with no change. Misoprostol was given 400 mcg rectally and 400 buccally. Still no tone. TXA was started. I examined the placenta and it appeared in tact. I swept the uterus and there was not remaining anything that I could feel. No cervical lacerations that I could see. Next I placed a Anaid device using the ring forceps to hold onto the cervix as I placed it. cervical balloon filled with 120 cc of saline and suction turned on at 80. Finally we got control of bleeding. After this we cleaned up, took extra time to find a lost sponge in the drapes and then placed a urinary catheter and SCDs as Priyanka would not be getting out of bed for a bit. She was very pale, reported a headache but other than that, she seemed ok. vitals were stable. Hct at this time was 35%. No further bleeding. Unasyn was given, one dose given the uterine manipulation. Baby boy Aquilino was born at 0547. 7lb 13 oz. 20.5 in long.
[2024-08-30] MEDS: IBUPROFEN 600 MG TABLET PO PRN (20:50)
[2024-08-30] MEDS: DOCUSATE SODIUM 100 MG CAPSULE PO SCH (20:50)
[2024-08-30] MEDS: ACETAMINOPHEN 500 MG TABLET PO PRN (20:50)
[2024-08-31 06:58] LABS: BASOPHILS # (AUTO) 0.1 10^3/uL (0.0-0.1); BASOPHILS % (AUTO) 0.4 %; EOSINOPHILS # (AUTO) 0.1 10^3/uL (0.0-0.7); EOSINOPHILS % (AUTO) 0.8 %; HCT - HEMATOCRIT 28.2 % (37.0-47.0); HGB - HEMOGLOBIN 9.2 g/dL (12.0-16.0); LYMPHOCYTES # (AUTO) 2.6 10^3/uL (1.5-3.5); LYMPHOCYTES % (AUTO) 15.6 %; MEAN CORPUSCULAR HGB CONC 32.6 g/dL (32.0-36.0); MEAN CORPUSCULAR VOLUME 91.9 fL (81.0-99.0); MEAN PLATELET VOLUME 11.9 fL (7.9-10.8); MONOCYTES % (AUTO) 6.1 %; NEUTROPHILS # (AUTO) 12.7 10^3/uL (1.5-6.6); NEUTROPHILS % (AUTO) 75.7 %; PLT - PLATELET COUNT 203 10^3/uL (130-450); RED BLOOD COUNT 3.07 10^6/uL (4.20-5.40); RED CELL DISTRIBUTION WIDTH 14.9 % (12.0-15.0); WHITE BLOOD COUNT 16.8 x10^3/uL (4.8-10.8)
[2024-08-31 07:16] LABS: ALBUMIN 2.7 g/dL (3.2-5.5); ALBUMIN/GLOBULIN RATIO 1.2 (1.0-2.2); BILIRUBIN,TOTAL 0.2 mg/dL (0.2-1.0); CALCIUM 8.3 mg/dL (8.5-10.3); CREATININE 0.7 mg/dL (0.6-1.3); TOTAL PROTEIN 4.9 g/dL (6.4-8.9)
--- NOTE | 2024-08-31 11:45 | PROVIDER PROGRESS NOTE ---
Subjective Prog Note Date Prog Note Date: 08/31/24 Prog Note Time: 11:42 Subjective Pt reports feeling: Improved Subjective: PPD #1 s/p complicated by hemorrhage. Anaid device and brambila catheter were removed yesterday. Bleeding has remained low/appropriate for . She has been up and ambulating. She initially had some dizziness yesterday afternoon, but this has since improved. She is eating, voiding, and controlling pain with oral pain meds. Baby is at the bedside and . Current Medications Current Medications Current Medications: Current Medications Generic Name Dose Route Start Last Admin Trade Name Freq PRN Reason Stop Dose Admin Acetaminophen 1,000 mg 08/29/24 07:51 08/30/24 20:50 Acetaminophen 500 Mg Tablet PO 1,000 mg Q8H PRN Administration Mild Pain or Fever>38C(100.4F) Calcium Carbonate/Glycine 1,000 mg 08/29/24 07:51 Calcium Carbonate Chew 500 Mg Tablet PO Q6HR PRN Heartburn Docusate Sodium 100 mg 08/30/24 09:00 08/31/24 09:15 Docusate Sodium 100 Mg Capsule PO 100 mg BID ZOE Administration Ephedrine Sulfate 5 mg 08/30/24 00:58 Ephedrine 50 Mg/Ml Vial IVP Q5M PRN For SBP<100;give until SBP>100 Fentanyl 50 mcg 08/29/24 07:51 Fentanyl 100 Mcg/2 Ml Vial IVP Q1H PRN Severe Pain (score 7-10) Hydralazine HCl 5 - 10 mg 08/29/24 07:51 Hydralazine Inj 20 Mg/Ml Vial IVP Q20M PRN SBP> or= 160 OR DBP> or= 110 Protocol Hydralazine HCl 10 mg 08/30/24 07:07 Hydralazine Inj 20 Mg/Ml Vial IVP .ONCE PRN SBP> or= 160 OR DBP> or= 110 Protocol Hydralazine HCl 5 - 10 mg 08/30/24 07:07 Hydralazine Inj 20 Mg/Ml Vial IVP Q20M PRN SBP >=160 and/or DBP >=110 Protocol Lactated Ringer's 500 mls @ 999 mls/hr 08/29/24 07:51 08/30/24 13:30 Lr IV Infused PRN PRN Infusion Abdominal Pain Oxytocin/Sodium Chloride 500 mls @ 999 mls/hr 08/29/24 07:51 08/30/24 12:10 Pitocin/Sodium Chloride IV Infused PRN PRN Titration POST- HEMORR PREVENTION Protocol 999 MILLIUNIT/MIN Tranexamic Acid 1,000 mg in 100 mls @ 600 mls/hr 08/29/24 07:51 08/30/24 06:20 Tranexamic 1,000 Mg/100ml-Nacl IV Infused Q30M PRN Infusion EBL >1200mL and within 3hr Oxytocin/Sodium Chloride 500 mls @ 1 mls/hr 08/29/24 23:00 08/30/24 12:10 Pitocin/Sodium Chloride IV Infused TITR ZOE Titration Protocol 1 MILLIUNIT/MIN Ropivacaine 200 mg in 100 mls @ 0 mls/hr 08/30/24 00:58 Naropin 0.2% EP PRN PRN PAIN Protocol Per Protocol Oxytocin/Sodium Chloride 500 mls @ 999 mls/hr 08/30/24 07:07 Pitocin/Sodium Chloride IV PRN PRN POST- HEMORR PREVENTION Protocol 999 MILLIUNIT/MIN Ibuprofen 600 mg 08/30/24 07:07 08/31/24 11:11 Ibuprofen 600 Mg Tablet PO 600 mg Q6HR PRN Administration Moderate Pain (Level 4-6) Labetalol HCl 20 mg 08/29/24 07:51 Labetalol 20 Mg/4 Ml Syringe IVP .ONCE PRN SBP> or= 160 OR DBP> or= 110 Protocol Labetalol HCl 20 - 40 mg 08/29/24 07:51 Labetalol 20 Mg/4 Ml Syringe IVP Q10M PRN SBP> or= 160 OR DBP> or= 110 Protocol Labetalol HCl 20 - 80 mg 08/29/24 07:51 Labetalol 20 Mg/4 Ml Syringe IVP Q10M PRN SBP> or= 160 OR DBP> or= 110 Protocol Labetalol HCl 20 - 80 mg 08/30/24 07:07 Labetalol 5 Mg/1 Ml 20 Ml Mdv IVP Q10M PRN SBP> or= 160 OR DBP> or= 110 Protocol Labetalol HCl 20 - 40 mg 08/30/24 07:07 Labetalol 20 Mg/4 Ml Syringe IVP Q10M PRN SBP> or= 160 OR DBP> or= 110 Protocol Labetalol HCl 20 mg 08/30/24 07:07 Labetalol 20 Mg/4 Ml Syringe IVP .ONCE PRN SBP >=160 and/or DBP >=110 Protocol Lidocaine HCl 20 ml 08/29/24 07:51 Lidocaine 1% 20 Ml Mdv ID 09/01/24 07:51 .ONCE PRN PERINEAL REPAIR Misoprostol 600 mcg 08/29/24 07:51 Misoprostol 200 Mcg Tablet BC .ONCE PRN Hemorrhage Naloxone HCl 0.1 mg 08/30/24 00:58 Naloxone 0.4 Mg/Ml Vial IVP Q2M PRN RR<8 Naloxone HCl 0.4 mg 08/30/24 07:07 Naloxone 0.4 Mg/Ml Vial IVP .ONCE PRN Opioid Overdose Nifedipine 10 - 20 mg 08/29/24 07:51 Nifedipine 10 Mg Capsule PO Q20M PRN SBP> or= 160 OR DBP> or= 110 Protocol Nifedipine 10 - 20 mg 08/30/24 07:07 Nifedipine 10 Mg Capsule PO Q20M PRN SBP >=160 and/or DBP >=110 Protocol Ondansetron HCl 4 mg 08/29/24 07:51 Ondansetron Odt 4 Mg Tablet PO Q4HR PRN Nausea / Vomiting Ondansetron HCl 4 mg 08/30/24 00:58 08/30/24 06:45 Ondansetron 4 Mg/2 Ml Vial IVP 4 mg Q6HR PRN Administration Nausea / Vomiting Oxytocin 10 unit 08/29/24 07:51 Oxytocin 10 Unit/Ml Vial IM .ONCE PRN Step One if no IV access. Simethicone 80 mg 08/30/24 07:07 Simethicone Chew 80 Mg Tablet PO TID PRN Gas Sodium Chloride 10 ml 08/29/24 07:51 Sodium Chloride Flush 0.9% 10 Ml Syringe IVP PRN PRN NEEDED PER PROVIDER ORDERS Sodium Chloride 10 ml 08/29/24 08:00 08/29/24 18:08 Sodium Chloride Flush 0.9% 10 Ml Syringe IVP Not Given Q8H [facility] Sodium Chloride 10 ml 08/29/24 22:40 Sodium Chloride Flush 0.9% 10 Ml Syringe IVP PRN PRN NEEDED PER PROVIDER ORDERS Sodium Chloride 10 ml 08/30/24 01:00 Sodium Chloride Flush 0.9% 10 Ml Syringe IVP 0100,0900,1700 [facility] Terbutaline Sulfate 0.25 mg 08/29/24 07:51 Terbutaline 1 Mg/Ml Vial SUBQ .ONCE PRN Tachystole Objective Vital Signs/Intake & Output Reviewed Vital Signs: Yes Vital Signs: Vital Signs x48h Temp Pulse Resp BP Pulse Ox 08/31/24 09:15 36.7 C 91 17 132/69 H 08/31/24 04:52 36.6 C 84 16 112/53 L 98 Intake & Output: Intake & Output 08/28/24 08/29/24 08/30/24 08/31/24 23:59 23:59 23:59 23:59 Intake Total 600 / 600 2700 / 2700 Output Total 3765 / 3765 Balance 600 / 600 -1065 / -1065 Weight (kg) 85.729 kg Objective General Appearance: positive No acute distress and Alert Eyes Bilateral: positive Normal inspection Respiratory: positive No respiratory distress and Breath sounds nml Cardiovascular: positive Regular rate & rhythm and No murmur Abdomen: positive Non-tender and Other (Uterus firm at U-1, mildly tender secondary to vigorous massage yesterday morning) Skin: positive Color nml Extremities: positive Non-tender, Full ROM and Nml appearance Neurologic/Psychiatric: positive Oriented x3, Motor nml, Sensation nml and Mood/affect nml Lab Results 08/31/24 06:47 08/31/24 06:47 Other Labs: Lab Results x24hrs 08/31/24 08/30/24 Range/Units 06:47 12:08 WBC 16.8 H 22.0 H (4.8-10.8) x10^3/uL RBC 3.07 L 3.24 L (4.20-5.40) 10^6/uL Hgb 9.2 L 9.8 L (12.0-16.0) g/dL Hct 28.2 L 29.1 L (37.0-47.0) % MCV 91.9 89.8 (81.0-99.0) fL MCH 30.0 30.2 (27.0-31.0) pg MCHC 32.6 33.7 (32.0-36.0) g/dL RDW 14.9 14.5 (12.0-15.0) % Plt Count 203 182 (130-450) 10^3/uL MPV 11.9 H 11.6 H (7.9-10.8) fL Neut # (Auto) 12.7 H 19.3 H (1.5-6.6) 10^3/uL Lymph # (Auto) 2.6 1.7 (1.5-3.5) 10^3/uL [place] # (Auto) 1.0 0.8 (0.0-1.0) 10^3/uL Eos # (Auto) 0.1 0.0 (0.0-0.7) 10^3/uL Baso # (Auto) 0.1 0.1 (0.0-0.1) 10^3/uL Absolute Nucleated RBC 0.00 0.00 x10^3/uL Nucleated RBC % 0.0 0.0 /100WBC Manual Slide Review Indicated Platelet Estimate NORMAL (130-450,000) (NORMAL) Platelet Morphology NORMAL APPEARANCE (NORMAL) RBC Morph Micro Appear NORMAL APPEARANCE (NORMAL) Sodium 137 (135-145) mmol/L Potassium 4.0 (3.5-4.5) mmol/L Chloride 109 (101-111) mmol/L Carbon Dioxide 22 (21-32) mmol/L Anion Gap 6.0 (6-13) BUN 8 (6-20) mg/dL Creatinine 0.7 (0.6-1.3) mg/dL Estimated GFR (MDRD) 101 (>89) Glucose 89 (74-104) mg/dL Calcium 8.3 L (8.5-10.3) mg/dL Total Bilirubin 0.2 (0.2-1.0) mg/dL AST 20 (10-42) IU/L ALT 11 (10-60) IU/L Alkaline Phosphatase 156 H (42-121) IU/L Total Protein 4.9 L (6.4-8.9) g/dL Albumin 2.7 L (3.2-5.5) g/dL Globulin 2.2 (2.1-4.2) g/dL Albumin/Globulin Ratio 1.2 (1.0-2.2) Assessment/Plan Problem List (1) Gestational hypertension: Impression: PPD #1 s/p . course has been complicated by gestational HTN (no severe features) and hemorrhage secondary to atony (EBL 1600 ml and s/p Anaid insertion and removal). BP's have been high-normal to mildly elevated in the past 24 hrs. PreE labs this morning all wnl. - No indication for antihypertensive medications at this time. - Cont with routine care and support. - Anticipate discharge home tomorrow. Qualifiers: Trimester: third trimester Qualified Code(s): O13.3 - Gestational [-induced] hypertension without significant proteinuria, third trimester (2) hemorrhage, delivered, current hospitalization: Impression: Lochia appropriate. H/H stable with no si/sx of anemia. Discussed risk of recurrent PPH with future pregnancies. (3) care following vaginal delivery:
[2024-09-01 08:57] VITALS: TEMP 98.2
[2024-09-01 09:51] VITALS: O2SAT 99
--- NOTE | 2024-09-01 10:23 | PROVIDER PROGRESS NOTE ---
Subjective Prog Note Date Prog Note Date: 09/01/24 Prog Note Time: 10:15 Subjective Pt reports feeling: Improved Subjective: PPD#2 - Patient is doing well. She has been ambulating, tolerating regular diet, voiding, and controlling pain with oral meds. Lochia has been minimal. She requests cream for bothersome hemorrhoids. Baby is at the bedside and . His bilirubin is elevated and may have to remain inpatient. Current Medications Current Medications Current Medications: Current Medications Generic Name Dose Route Start Last Admin Trade Name Freq PRN Reason Stop Dose Admin Acetaminophen 1,000 mg 08/29/24 07:51 08/30/24 20:50 Acetaminophen 500 Mg Tablet PO 1,000 mg Q8H PRN Administration Mild Pain or Fever>38C(100.4F) Calcium Carbonate/Glycine 1,000 mg 08/29/24 07:51 Calcium Carbonate Chew 500 Mg Tablet PO Q6HR PRN Heartburn Docusate Sodium 100 mg 08/30/24 09:00 09/01/24 08:42 Docusate Sodium 100 Mg Capsule PO 100 mg BID ZOE Administration Ephedrine Sulfate 5 mg 08/30/24 00:58 Ephedrine 50 Mg/Ml Vial IVP Q5M PRN For SBP<100;give until SBP>100 Fentanyl 50 mcg 08/29/24 07:51 Fentanyl 100 Mcg/2 Ml Vial IVP Q1H PRN Severe Pain (score 7-10) Hydralazine HCl 5 - 10 mg 08/29/24 07:51 Hydralazine Inj 20 Mg/Ml Vial IVP Q20M PRN SBP> or= 160 OR DBP> or= 110 Protocol Hydralazine HCl 10 mg 08/30/24 07:07 Hydralazine Inj 20 Mg/Ml Vial IVP .ONCE PRN SBP> or= 160 OR DBP> or= 110 Protocol Hydralazine HCl 5 - 10 mg 08/30/24 07:07 Hydralazine Inj 20 Mg/Ml Vial IVP Q20M PRN SBP >=160 and/or DBP >=110 Protocol Lactated Ringer's 500 mls @ 999 mls/hr 08/29/24 07:51 08/30/24 13:30 Lr IV Infused PRN PRN Infusion Abdominal Pain Oxytocin/Sodium Chloride 500 mls @ 999 mls/hr 08/29/24 07:51 08/30/24 12:10 Pitocin/Sodium Chloride IV Infused PRN PRN Titration POST- HEMORR PREVENTION Protocol 999 MILLIUNIT/MIN Tranexamic Acid 1,000 mg in 100 mls @ 600 mls/hr 08/29/24 07:51 08/30/24 06:20 Tranexamic 1,000 Mg/100ml-Nacl IV Infused Q30M PRN Infusion EBL >1200mL and within 3hr Oxytocin/Sodium Chloride 500 mls @ 1 mls/hr 08/29/24 23:00 08/30/24 12:10 Pitocin/Sodium Chloride IV Infused TITR ZOE Titration Protocol 1 MILLIUNIT/MIN Ropivacaine 200 mg in 100 mls @ 0 mls/hr 08/30/24 00:58 Naropin 0.2% EP PRN PRN PAIN Protocol Per Protocol Oxytocin/Sodium Chloride 500 mls @ 999 mls/hr 08/30/24 07:07 Pitocin/Sodium Chloride IV PRN PRN POST- HEMORR PREVENTION Protocol 999 MILLIUNIT/MIN Ibuprofen 600 mg 08/30/24 07:07 09/01/24 04:58 Ibuprofen 600 Mg Tablet PO 600 mg Q6HR PRN Administration Moderate Pain (Level 4-6) Labetalol HCl 20 mg 08/29/24 07:51 Labetalol 20 Mg/4 Ml Syringe IVP .ONCE PRN SBP> or= 160 OR DBP> or= 110 Protocol Labetalol HCl 20 - 40 mg 08/29/24 07:51 Labetalol 20 Mg/4 Ml Syringe IVP Q10M PRN SBP> or= 160 OR DBP> or= 110 Protocol Labetalol HCl 20 - 80 mg 08/29/24 07:51 Labetalol 20 Mg/4 Ml Syringe IVP Q10M PRN SBP> or= 160 OR DBP> or= 110 Protocol Labetalol HCl 20 - 80 mg 08/30/24 07:07 Labetalol 5 Mg/1 Ml 20 Ml Mdv IVP Q10M PRN SBP> or= 160 OR DBP> or= 110 Protocol Labetalol HCl 20 - 40 mg 08/30/24 07:07 Labetalol 20 Mg/4 Ml Syringe IVP Q10M PRN SBP> or= 160 OR DBP> or= 110 Protocol Labetalol HCl 20 mg 08/30/24 07:07 Labetalol 20 Mg/4 Ml Syringe IVP .ONCE PRN SBP >=160 and/or DBP >=110 Protocol Misoprostol 600 mcg 08/29/24 07:51 Misoprostol 200 Mcg Tablet BC .ONCE PRN Hemorrhage Naloxone HCl 0.1 mg 08/30/24 00:58 Naloxone 0.4 Mg/Ml Vial IVP Q2M PRN RR<8 Naloxone HCl 0.4 mg 08/30/24 07:07 Naloxone 0.4 Mg/Ml Vial IVP .ONCE PRN Opioid Overdose Nifedipine 10 - 20 mg 08/29/24 07:51 Nifedipine 10 Mg Capsule PO Q20M PRN SBP> or= 160 OR DBP> or= 110 Protocol Nifedipine 10 - 20 mg 08/30/24 07:07 Nifedipine 10 Mg Capsule PO Q20M PRN SBP >=160 and/or DBP >=110 Protocol Ondansetron HCl 4 mg 08/29/24 07:51 Ondansetron Odt 4 Mg Tablet PO Q4HR PRN Nausea / Vomiting Ondansetron HCl 4 mg 08/30/24 00:58 08/30/24 06:45 Ondansetron 4 Mg/2 Ml Vial IVP 4 mg Q6HR PRN Administration Nausea / Vomiting Oxytocin 10 unit 08/29/24 07:51 Oxytocin 10 Unit/Ml Vial IM .ONCE PRN Step One if no IV access. Simethicone 80 mg 08/30/24 07:07 Simethicone Chew 80 Mg Tablet PO TID PRN Gas Sodium Chloride 10 ml 08/29/24 07:51 Sodium Chloride Flush 0.9% 10 Ml Syringe IVP PRN PRN NEEDED PER PROVIDER ORDERS Sodium Chloride 10 ml 08/29/24 08:00 08/29/24 18:08 Sodium Chloride Flush 0.9% 10 Ml Syringe IVP Not Given Q8H ZOE Sodium Chloride 10 ml 08/29/24 22:40 Sodium Chloride Flush 0.9% 10 Ml Syringe IVP PRN PRN NEEDED PER PROVIDER ORDERS Sodium Chloride 10 ml 08/30/24 01:00 Sodium Chloride Flush 0.9% 10 Ml Syringe IVP 0100,0900,1700 ZOE Terbutaline Sulfate 0.25 mg 08/29/24 07:51 Terbutaline 1 Mg/Ml Vial SUBQ .ONCE PRN Tachystole Objective Vital Signs/Intake & Output Reviewed Vital Signs: Yes Vital Signs: Vital Signs x48h Temp Pulse Resp BP Pulse Ox 09/01/24 09:50 112 H 15 110/70 99 09/01/24 08:53 36.8 C 115 H 16 140/76 H 97 09/01/24 04:39 36.9 C 97 16 126/71 98 Intake & Output: Intake & Output 08/29/24 08/30/24 08/31/24 09/01/24 23:59 23:59 23:59 23:59 Intake Total 600 / 600 2700 / 2700 250 / 250 Output Total 3765 / 3765 Balance 600 / 600 -1065 / -1065 250 / 250 Weight (kg) 85.729 kg Objective General Appearance: positive No acute distress and Alert Eyes Bilateral: positive Normal inspection Respiratory: positive No respiratory distress Cardiovascular: positive Regular rate & rhythm Abdomen: positive Non-tender and Other (Uterus firm, nontender at U-2) Skin: positive Color nml Extremities: positive Non-tender, Full ROM and Pedal edema (1+, nonpitting) Neurologic/Psychiatric: positive Oriented x3, Motor nml, Sensation nml and Mood/affect nml Lab Results 08/31/24 06:47 08/31/24 06:47 ABX Reporting Has patient been on IV antibiotics over the past 48 hours?: No Assessment/Plan Problem List (1) Gestational hypertension: Impression: PPD #2 s/p with peripartum course complicated by gestational HTN and PPH (EBL 1600 ml, s/p Anaid insertion/removal). BP's 110-140s/60-70s since delivery. No severe si/sx. - No indication for antihypertensive at this time. - Consider discharge home later today if baby meeting d/c criteria. If not, cont with routine PP care and lactations support. - Discussed discharged precautions, expectations, and limitations. - Reviewed recommendation for BP check in clinic in 1-2 days and 1 wk (about 2 wks PP). - Discussed d/c medications: motrin, tylenol, stool softener, hydrocortisone cream for hemorrhoid Qualifiers: Trimester: third trimester Qualified Code(s): O13.3 - Gestational [-induced] hypertension without significant proteinuria, third trimester (2) hemorrhage, delivered, current hospitalization: (3) care following vaginal delivery:
[2024-09-01] MEDS: HYDROCORTISONE 1% CREAM 28 GM TUBE TOP PRN (11:03)
[2024-09-01 12:35] VITALS: BP 129/76
--- NOTE | 2024-09-01 12:54 | Discharge Summary ---
"Discharge Summary Admit Date: 08/29/24 Discharge Date: 09/01/24 Discharging Provider: Dr. Stefania Akbar Primary Care Provider: Dr. Venkatesh Andrews Code Status: Attempt Resuscitation Discharge Facility Name: [facility] DIAGNOSES Admission Diagnoses: at 40 weeks Gestational hypertension Gestational diabetes [employer] B Strep Discharge Diagnoses with Status of Each Condition: Same now s/p vaginal delivery hemorrhage - resolved HPI History of Present Illness: Patient is a 28 yo at 40+3 wks here for induction of labor. : 1 Care: positive [facility] Risk/History: positive None Complications This : positive Gestational diabetes (diet controlled) and induced HTN Smoking Status: Never smoker Other Maternal History Other Maternal History: here for labor induction at 40 weeks. no headache, n/v. no contractions. good movement. aspirin (Adult Aspirin Regimen) 81 mg PO QDAY blood sugar diagnostic 4 times per day via meter as directed blood sugar diagnostic (FreeStyle Lite Strips) 4 times daily via meter blood-glucose meter 4 times per day as directed blood-glucose meter (FreeStyle Lite Meter kit) Use meter 4 times daily as directed cholecalciferol (vitamin D3) 125 mcg PO QDAY lancets 4 times per day as directed PNV no.930-[id number] acid 28 mg iron- 800 mcg ( Vitamin) tabs PO Expected Delivery Route/Plan Anticipate Specific Issues/Plans Accepts blood transfusion in event of medical emergency Medical Hx: no significant Surgical Hx: none Social Hx: [employer]. Partner Active duty [employer]. He has a 2 year old daughter from a previous relationship. No ETOH or IVDA. Never smoker. Reports she is safe in current relationship. LMP: 11/23/2023 FRANCINE by LMP: 08/29/2024 US: 02/16/2024 @ 11.5wks c/w 1st trimester ultrasound Final FRANCINE: 08/29/2024 PROBLEMS: Gestational diabetes: -Tracking and logging blood glucose did not need meds Pre- Weight: 135, 189 today = 54 pound weight gain BMI: 24.0 Blood type: A+ Antibody Screen: Negative CBC: PLT: 241 HCT38.9 HGB 13.1 RUB: Immune VZV: Immune HBsAg: Neg HepC: NR RPR: NR HIV: NR Flu: now out of season Covid: out of season PAP: 11/2019 normal per pt- Pap due PP GC/CT: 02/20/2024 Neg HSV: denies in self and partner Genetic testing: MaterniT- Neg AFP -neg FAS: Placenta: posterior w/o previa Cord: 3VC PANCHO: 15.8cm wnl EFW: 455.8g 81.3%ile 50gm OGCT: 203 *3HR GTT: F90 1hr:184 2hr 214 3hr 97 TDAP: 06/18/2024 Breast Pump: HAS CBC: PLT 291 HCT 37.9 HGB 12.6 RPR: NR GBS: 08/01/2024- positive CONSULTS | PROCEDURES Consultations: None Procedures: - Spontaneous vaginal delivery - Induction of labor - Epidural - Insertion and removal of Anaid device HOSPITAL COURSE Hospital Course: After admission, labor induction initiated with misoprostol, and patient progressed to second stage of labor. Immediately following , uterine tone was found to be poor to absent. She was managed with methergine, misorostol, tranexamic acid, then placement of a Anaid device to suction. Bleeding improved thereafer, and Anaid device was removed 3-4 hours after insertion. Bleeding and uterine tone remained good. Immediate and repeat CBC noted mild decline in H/H, and patient had no si/sx of anemia. She did not require blood or iron infusion. Blood pressures during labor and were 110-140s/60-80s. She did not require antihypertensive medications or mag sulfate during her hospitalization. Admission and repeat preE labs were normal. course was otherwise unremarkable. Vital signs were normal and stable. She was discharged home on PPD#2 ambulating, tolerating a regular diet, voiding freely, and controlling pain with oral pain medications. ALLERGIES Allergies Allergy/AdvReac Type Severity Reaction Status Date / Time cefprozil (From Cefzil) Allergy Mild Rash Verified 08/30/24 10:35 MEDICATIONS Ambulatory Orders Medication Instructions Recorded Confirmed vitamins no.159-iron 1 tab PO DAILY 02/16/24 08/29/24 fumarate 28 mg-folic acid 800 mcg tablet ( Vitamin) cholecalciferol (vitamin D3) 125 125 mcg PO DAILY 12/0 10/0808/29/24 mcg (5,000 unit) capsule acetaminophen 500 mg tablet 1,000 mg (2 x 500 mg) PO Q 8H PRN 05/18/25 (Tylenol Extra Strength) Mild Pain Or Fever>38c(100.4 f) #30 tabs docusate sodium 100 mg capsule 100 mg PO BID PRN const ipation #30 09/01/24 caps hydrocortisone-aloe vera 1 % 1 applic topical BID PRN 09/01/24 topical cream Hemorrhoids #28.4 grams ibuprofen 600 mg tablet 600 mg PO Q6HR PRN Moderate Pain 09/01/24 (Level 4-6) #30 tabs PHYSICAL EXAM AT DISCHARGE Vital Signs: Vital Signs x48h Temp Pulse Resp BP Pulse Ox 09/01/24 12:34 36.8 C 98 15 129/76 09/01/24 09:50 112 H 15 110/70 99 09/01/24 08:53 36.8 C 115 H 16 140/76 H 97 See progress note this date for exam findings. LABS 08/31/24 06:47 08/31/24 06:47 QUALITY (Female Hip Fx Only) Was patient sent home on osteoporosis medication?: No FOLLOW UP Follow Up: Clinic BP check 09/02 and in 2 wks visit/exam in 6 weeks TIME SPENT Time Spent in Discharge (Minutes): 25 Discharge Plan Discharge Patient Disposition: 01 Home, Self Care Condition: Good Medically Cleared Date:: 09/01/24 Prescriptions: New acetaminophen [Tylenol Extra Strength] 500 mg Tablet 1,000 mg PO Q8H PRN (Reason: Mild Pain Or Fever>38c(100.4f)) Qty: 30 0RF docusate sodium 100 mg Capsule 100 mg PO BID PRN (Reason: constipation) Qty: 30 0RF hydrocortisone-aloe vera 1 % Cream 1 applic topical BID PRN (Reason: Hemorrhoids) Qty: 28.4 0RF ibuprofen 600 mg Tablet 600 mg PO Q6HR PRN (Reason: Moderate Pain (Level 4-6)) Qty: 30 0RF Continued cholecalciferol (vitamin D3) 125 mcg (5,000 unit) capsule 125 mcg PO DAILY Vitamin 28 mg iron- 800 mcg tablet 1 tab PO DAILY Discontinued (DME) blood-glucose meter Kit See Rx Instructions .ROUTE .MEDSUPPLY Qty: 1 0RF Rx Instructions: 4 times per day as directed (DME) lancets Misc See Rx Instructions .ROUTE .MEDSUPPLY Qty: 200 4RF Rx Instructions: 4 times per day as directed (DME) blood sugar diagnostic Strip See Rx Instructions .ROUTE .MEDSUPPLY Qty: 200 4RF Rx Instructions: 4 times per day via meter as directed (DME) blood-glucose meter [FreeStyle Lite Meter] Kit See Rx Instructions .Route Qty: 1 0RF Rx Instructions: Use meter 4 times daily as directed aspirin [Adult Aspirin Regimen] 81 mg tablet,delayed release (DR/EC) 81 mg PO DAILY (DME) FreeStyle Lite Strips Strip See Rx Instructions .Route Qty: 100 4RF Rx Instructions: 4 times daily via meter Activity Restrictions: see below Activity Restrictions/Additional Instructions: - Pelvic rest for 6 weeks - No strenuous exercise for 6 weeks; high impact exercise may resume in 12 weeks - No bubble baths, swimming, or jacuzzi for 2 weeks - Check blood pressure twice daily with home cuff. Call clinic if BP's consistently 140-150s/90-100s. Report to ER if BP 160/110 or more. - Obtain 2 hr glucose tolerance test at 5 weeks to assess if gestational diabetes has resolved. Diet: Regular Print Language: Moz[place] Patient Instructions: Vaginal After, Preeclampsia, Diabetes Gestational After Preg Follow-up Care: Venkatesh Andrews MD [Provider Admit Priv/Credential] - (Call for BP check appt 09/02 and at 2 weeks . Schedule 6 wk visit.)"
--- NOTE | 2024-09-01 14:37 | Labor Flowsheet ---
Labor Flowsheet Datetime Report Generated by CPN: 09/01/2024 14:37 Datetime: 09/01/2024 04:40 Pulse: 97 SpO2 (%): 97 Datetime: 09/01/2024 04:39 VITAL SIGNS NBP Sys/Gilda/Mean (mmHg): 126 : 71 : 83 Datetime: 08/30/2024 07:57 Membranes Ruptured Date/Time: 08/29/2024 22:20 Datetime: 08/30/2024 06:04 Medication Comments: TXA 1000MG IVPB Datetime: 08/30/2024 05:59 Stage of : Recovery Datetime: 08/30/2024 05:55 LaborFlag: Labor Datetime: 08/30/2024 05:47 UTERINE ACTIVITY Monitor Mode: External Frequency (min): 3-7 Quality: Moderate Duration (sec): 60 Pattern: Normal: <= 5 Contractions in 10 Minutes Resting Tone (Palpate): Relaxed ASSESSMENT A Monitor Mode: Telemetry FHR Baseline Rate : 135 Variability: Moderate 6-25 bpm Decelerations: Variable Datetime: 08/30/2024 05:43 Communication Comments: per md rn to increase pit Datetime: 08/30/2024 05:30 Accelerations: 15X15 Datetime: 08/30/2024 04:30 FHR Baseline Changes: No Baseline Change Datetime: 08/30/2024 04:04 COMMUNICATION Communication: Provider at Bedside Datetime: 08/30/2024 04:00 Actions for Decelerations: Pitocin Off; Provider Notified Datetime: 08/30/2024 03:57 STAGE 2 Stage 2 Comments: pushing started Datetime: 08/30/2024 03:43 VAGINAL EXAM Dilatation (cm): 10.0 Effacement (%): 100 Station: 1 Exam by: Alda Ramirez, RN Datetime: 08/30/2024 03:16 Monitor Interventions for UA: Carrizo Adjusted Category: Category II Oxygen Method: Room Air Datetime: 08/30/2024 03:00 Temperature (C): 36.6 Datetime: 08/30/2024 02:49 Monitor Interventions for FHR: Ultrasound Adjusted Datetime: 08/30/2024 02:39 Patient Position/Activity: Right Extreme Datetime: 08/30/2024 01:28 I/O Interventions: Landeros Cath Inserted Datetime: 08/30/2024 00:50 PATIENT CARE IV/Blood Work: IV Bolus Started Datetime: 08/30/2024 00:33 Epidural Procedure: Test Dose Datetime: 08/30/2024 00:30 PAIN Pain Scale: 7 Datetime: 08/30/2024 00:26 PROCEDURE TIME OUT Procedure Verify: Correct Patient Identity; Correct Side and Site are Marked; Accurate Procedure Consent Form; Agreement on Procedure to be Done; Correct Patient Position; Relevant Images and Results are Properly Labeled and Displayed; Addressed Need to Administer Antibiotics or Fluids for Irrigation; Safety Precautions Based on Patient History or Medication Use ANESTHESIA Anesthesia Plans: Epidural Epidural Positioning: Sitting Anesthesia Comments: epidural placement start Datetime: 08/30/2024 00:23 Patient Care Comments: sitting for epidural placement Datetime: 08/29/2024 22:20 Membrane Status: Ruptured Membranes Rupture Method: Spontaneous Amniotic Fluid Color: Clear Amniotic Fluid Amount: Moderate Datetime: 08/29/2024 21:30 Contraction Comments: irritability Datetime: 08/29/2024 20:00 Respirations: 16 MATERNAL ASSESSMENT Level of Consciousness: Alert DTR's/Clonus: DTRs 1+ Headache: Denies Breath Sounds, Left: Clear and Equal Breath Sounds, Right: Clear and Equal Nausea/Vomiting: Denies Datetime: 08/29/2024 18:48 Pain Presence: Intermittent Pain Type: Cramping Pain Location: Abdomen Pain Goal: 8 Pain Assessment Comments: "feels like period cramps" Datetime: 08/29/2024 17:51 MEDICATIONS Antibiotics: Ampicillin IV 2 Gm Datetime: 08/29/2024 13:22 Vaginal Bleeding: None Cervix, Consistency: Moderate Cervix, Position: Posterior Cervical Ripening Agents: Cytotec @ Datetime: 08/29/2024 12:00 Comments: uterine irritability Datetime: 08/29/2024 08:59 Intensity IUP (mmHg): unable to assess Datetime: 08/29/2024 08:55 Vaginal Exam Comments: Ultrasound performed by Dr Griffin . Baby head was positioned down
== END 2024-09-01 14:30 | disposition home or self-care (01) | DRG 768 ==
LOC: WFO 07:37 → FBP 07:37
PROVIDERS: ADMIT Obstetrics & Gynecology; ATTEND Obstetrics & Gynecology
DX: Z3A.40 40 weeks gestation of pregnancy; O72.1 Other immediate postpartum hemorrhage; O71.4 Obstetric high vaginal laceration alone; Z91.85 Personal history of military service; O24.420 Gestational diabetes mellitus in childbirth, diet controlled; Z37.0 Single live birth; R51.9 Headache, unspecified; O87.2 Hemorrhoids in the puerperium; Z79.82 Long term (current) use of aspirin; O13.4 Gestational [pregnancy-induced] hypertension without significant proteinuria, complicating childbirth; O90.89 Other complications of the puerperium, not elsewhere classified; O99.824 Streptococcus B carrier state complicating childbirth